=== PATIENT | male | born 1965 | race Native Hawaiian/Other Pacific Islander ===

== ENCOUNTER 2021-10-23 20:43 | Emergency (ER) | payer OTHER ==
[~2021-10-23] VITALS: Ht 182.9 cm; Wt 106.6 kg
[2021-10-23 21:26] LABS: PLATELET COUNT 217 K/uL (142-355)
[2021-10-23 21:34] LABS: POTASSIUM 3.5 mmol/L (3.6-5.2)
[2021-10-24 00:10] VITALS: BP 135/81; TEMP 98.9
== END 2021-10-24 00:10 | disposition short-term general hospital (02) ==
LOC: ED 20:43
PROVIDERS: Hospitalist
DX: S72.092A Other fracture of head and neck of left femur, initial encounter for closed fracture (principal); W11.XXXA Fall on and from ladder, initial encounter; Y92.89 Other specified places as the place of occurrence of the external cause; Z11.52 Encounter for screening for COVID-19
CPT/HCPCS: 36415; 51702; 80053; 80307; 80320; 85027; 85610; 85730; 87635; 96360; 96361; 96374; 96375; 96376; 99284; J1170; J1644; J1885; J2405; Q9963; U0003

== ENCOUNTER 2022-01-31 02:41 | Emergency (ER) | payer OTHER ==
[~2022-01-31] VITALS: Ht 182.9 cm; Wt 113.4 kg
[2022-01-31 03:22] LABS: PLATELET COUNT 233 K/uL (142-355)
[2022-01-31 03:52] LABS: POTASSIUM 3.3 mmol/L (3.6-5.2)
[2022-01-31 05:10] VITALS: BP 165/90; TEMP 98.6
== END 2022-01-31 05:10 | disposition home or self-care (01) ==
LOC: ED 02:41
PROVIDERS: Emergency Medicine Emergency Medical Services
DX: G40.909 Epilepsy, unspecified, not intractable, without status epilepticus (principal); Z91.14 Patient's other noncompliance with medication regimen; E87.6 Hypokalemia
CPT/HCPCS: 36415; 80053; 80156; 82542; 83735; 85027; 93005; 96360; 96365; 99284; J1953